=== PATIENT | male | born 1980 | race Caucasian/White ===

== ENCOUNTER 2017-09-30 07:28 | Inpatient (IN) | payer MEDICAID ==
[2017-09-30] MEDS: SOD CHLORIDE 0.9% 1,000 ML IV ×4 (08:06→22:35)
[2017-09-30] MEDS: ONDANSETRON 4 MG INJ IV (08:06)
[2017-09-30] MEDS: morphine 4 MG/ML VIAL IV (08:06)
[2017-09-30 08:09] LABS: ADD UMIC NO; UR ASCORBIC ACID NEGATIVE (NEGATIVE); UR BILIRUBIN (Dip) NEGATIVE (NEGATIVE); UR BLOOD (Dip) NEGATIVE (NEGATIVE); UR CLARITY CLEAR (CLEAR); UR COLOR YELLOW (YELLOW); UR GLUCOSE (Dip) NEGATIVE (NEGATIVE); UR KETONES (Dip) NEGATIVE (NEGATIVE); UR LEUKOCYTE ESTERASE (Dip) NEGATIVE Leu/ul (NEGATIVE); UR NITRITE (Dip) NEGATIVE (NEGATIVE); UR SPECIFIC GRAVITY (Dip) 1.014 (1.003-1.030); UR TOTAL PROTEIN (Dip) NEGATIVE (NEGATIVE); UR UROBILINOGEN (Dip) NEGATIVE (NEGATIVE)
[2017-09-30 08:13] LABS: ADD MAN DIFF? NO
[2017-09-30 08:14] LABS: WHITE BLOOD COUNT 14.6 10^3/ul (4.8-10.8)
[2017-09-30 08:14] LABS: BASOPHIL # 0.1 10^3/ul (0.0-0.1); BASOPHILS % 0.4 % (0.0-2.0); EOSINOPHILS # 0.2 10^3/ul (0.0-0.5); EOSINOPHILS % 1.2 % (0.0-7.0); HEMATOCRIT 47.4 % (42.0-52.0); HEMOGLOBIN 16.5 g/dl (14.0-18.0); LYMPHOCYTES # 1.7 10^3/ul (0.8-2.9); LYMPHOCYTES % 11.7 % (15.0-51.0); MEAN CORPUSCULAR HEMOGLOBIN 29.8 pg (29.0-33.0); MEAN CORPUSCULAR HGB CONC 34.8 g/dl (32.0-37.0); MEAN CORPUSCULAR VOLUME 85.7 fl (82.0-101.0); MEAN PLATELET VOLUME 10.5 fl (7.4-10.4); MONOCYTE # 0.8 10^3/ul (0.3-0.9); MONOCYTES % 5.3 % (0.0-11.0); NEUTROPHIL # 11.8 10^3/ul (1.6-7.5); PLATELET COUNT 283 10^3/UL (140-415); RED BLOOD COUNT 5.53 10^6/ul (4.70-6.10); RED CELL DISTRIBUTION WIDTH 12.4 % (11.5-14.5)
[2017-09-30 08:41] LABS: ALANINE AMINOTRANSFERASE 50 IU/L (13-69); ALBUMIN 4.5 g/dl (3.3-4.9); ALKALINE PHOSPHATASE 87 IU/L (42-121); ANION GAP 14 (8-16); ASPARTATE AMINO TRANSFERASE 38 IU/L (15-46); BILIRUBIN,INDIRECT 0.4 mg/dl (0-1.1); BILIRUBIN,TOTAL 0.4 mg/dl (0.2-1.3); BLOOD UREA NITROGEN 11 mg/dl (7-20); CALCIUM 9.5 mg/dl (8.4-10.2); CARBON DIOXIDE 26 mmol/L (21-31); CHLORIDE 103 mmol/L (97-110); CREATININE 0.78 mg/dl (0.61-1.24); GLUCOSE 100 mg/dl (70-220); LIPASE 43 U/L (23-300); POTASSIUM 4.2 mmol/L (3.5-5.1); SODIUM 139 mmol/L (135-144); TOTAL PROTEIN 7.7 g/dl (6.1-8.1)
[2017-09-30] MEDS: PIPER-TAZO 3.375 GM IV (PMX) 100 ML IVPB ×3 (09:58→18:00)
[2017-09-30] MEDS: HYDROmorphONE 1 MG/ML SYG IV (10:13)
[2017-09-30] MEDS ORDERED: ONDANSETRON 4 MG INJ IV ×2 (12:00→18:30)
[2017-09-30] MEDS ORDERED: NACL 0.9% 3 ML SYG IV (12:00)
[2017-09-30] MEDS ORDERED: morphine 2 MG INJ IV (12:00)
[2017-09-30] MEDS ORDERED: FENTAnyl 50 MCG/ML VIAL IV ×3 (18:30)
[2017-09-30] MEDS ORDERED: HYDROmorphONE 1 MG/5 ML IV SYRINGE IV ×2 (18:30)
[2017-09-30] MEDS ORDERED: ALBUTEROL 0.083% (NEB) 2.5 MG/3 ML AMP HHN (18:30)
[2017-09-30] MEDS ORDERED: LABETALOL HCL 20MG INJ IV (18:30)
[2017-09-30] MEDS ORDERED: MIDAZOLAM 1 MG/ML 2 ML INJ IV (18:30)
[2017-09-30] MEDS ORDERED: TRIMETHOBENZAMIDE 100 MG/ML VIAL IM (18:30)
[2017-09-30] MEDS ORDERED: EPHEDrine SULFATE 50 MG/5 ML SYG IV (18:30)
[2017-09-30] MEDS ORDERED: hydrALAzine 20 MG INJ IV (18:30)
[2017-09-30] MEDS ORDERED: MEPERIDINE 25 MG INJ IV (18:30)
[2017-09-30] MEDS ORDERED: IPRATROPIUM (NEB) 0.5 MG/2.5 ML AMP HHN (18:30)
[2017-09-30] MEDS ORDERED: DIPHENHYDRAMINE 50 MG INJ IV (18:30)
[2017-09-30] MEDS ORDERED: OXYCODONE/ACETAMINOPHEN (5/325) TAB PO ×2 (18:30)
[2017-09-30] MEDS ORDERED: PROPOFOL 20 ML (19:34)
[2017-09-30] MEDS ORDERED: NEOSTIGMINE 3 MG/3 ML SYRINGE (19:34)
[2017-09-30] MEDS ORDERED: FENTAnyl 50 MCG/ML VIAL (19:34)
[2017-09-30] MEDS ORDERED: CEFAZOLIN 1 GM INJ (19:34)
[2017-09-30] MEDS ORDERED: GLYCOPYRROLATE 0.4 MG INJ (19:34)
[2017-09-30] MEDS ORDERED: MIDAZOLAM 1 MG/ML 2 ML INJ (19:34)
[2017-09-30] MEDS ORDERED: ROCURONIUM 50 MG INJ (19:34)
[2017-09-30] MEDS ORDERED: ONDANSETRON 4 MG INJ (19:34)
[2017-09-30] MEDS ORDERED: DEXAMETHASONE 4 MG/ML 1 ML INJ (19:34)
[2017-09-30] MEDS: LIDOCAINE 1% (MPF) 30 ML INJ (20:13)
[2017-09-30] MEDS: BUPIVACAINE 0.25%/EPI (SDV) 30 ML INJ (20:13)
[2017-09-30] MEDS ORDERED: SUGAMMADEX SODIUM 200 MG/2 ML VIAL IV (20:24)
[2017-09-30] MEDS ORDERED: HYDROCODONE/APAP (5/325) TAB PO (21:00)
[2017-09-30] MEDS: HYDROmorphONE 1 MG/5 ML IV SYRINGE IV (21:26)
[2017-09-30] MEDS: FAMOTIDINE 20 MG TAB PO (22:35)
[2017-10-01] MEDS: PIPER-TAZO 3.375 GM IV (PMX) 100 ML IVPB ×3 (00:28→12:14)
[2017-10-01] MEDS: SOD CHLORIDE 0.9% 1,000 ML IV ×2 (03:39→11:39)
[2017-10-01 05:41] LABS: ADD MAN DIFF? NO
[2017-10-01 05:49] LABS: BASOPHILS % 0.1 % (0.0-2.0); HEMATOCRIT 44.7 % (42.0-52.0); HEMOGLOBIN 15.9 g/dl (14.0-18.0); LYMPHOCYTES # 0.7 10^3/ul (0.8-2.9); LYMPHOCYTES % 7.2 % (15.0-51.0); MEAN CORPUSCULAR HEMOGLOBIN 30.3 pg (29.0-33.0); MEAN CORPUSCULAR HGB CONC 35.6 g/dl (32.0-37.0); MEAN CORPUSCULAR VOLUME 85.1 fl (82.0-101.0); MEAN PLATELET VOLUME 10.2 fl (7.4-10.4); MONOCYTE # 0.3 10^3/ul (0.3-0.9); MONOCYTES % 3.2 % (0.0-11.0); NEUTROPHIL # 8.7 10^3/ul (1.6-7.5); NEUTROPHILS % 89.1 % (39.0-77.0); PLATELET COUNT 260 10^3/UL (140-415); RED BLOOD COUNT 5.25 10^6/ul (4.70-6.10); RED CELL DISTRIBUTION WIDTH 12.6 % (11.5-14.5)
[2017-10-01 05:49] LABS: WHITE BLOOD COUNT 9.7 10^3/ul (4.8-10.8)
[2017-10-01] MEDS: ACETAMINOPHEN 325 MG TAB PO (06:01)
[2017-10-01 06:14] LABS: ALANINE AMINOTRANSFERASE 43 IU/L (13-69); ALBUMIN/GLOBULIN RATIO 1.25; ALKALINE PHOSPHATASE 72 IU/L (42-121); ANION GAP 13 (8-16); ASPARTATE AMINO TRANSFERASE 28 IU/L (15-46); BLOOD UREA NITROGEN 8 mg/dl (7-20); CALCIUM 9.2 mg/dl (8.4-10.2); CARBON DIOXIDE 26 mmol/L (21-31); CHLORIDE 105 mmol/L (97-110); CHOL/HDL RATIO 4.7 RATIO; CHOLESTEROL 277 mg/dl (100-200); CREATININE 0.78 mg/dl (0.61-1.24); GLUCOSE 135 mg/dl (70-220); HDL CHOLESTEROL 58 mg/dl (28-63); LDL CHOLESTEROL,CALCULATED 196 mg/dl; MAGNESIUM 1.9 mg/dl (1.7-2.5); PHOSPHORUS 4.8 mg/dl (2.5-4.9); POTASSIUM 4.2 mmol/L (3.5-5.1); SODIUM 140 mmol/L (135-144); TOTAL PROTEIN 7.2 g/dl (6.1-8.1); TRIGLYCERIDES 114 mg/dl (0-149)
[2017-10-01 06:38] LABS: THYROID STIMULATING HORMONE 0.279 MIU/L (0.465-4.680)
[2017-10-01 07:53] LABS: HEMOGLOBIN A1C 5.5 % (0-5.9)
[2017-10-01] MEDS: FAMOTIDINE 20 MG TAB PO (07:57)
== END 2017-10-01 16:30 | disposition home or self-care (01) | DRG 343 ==
LOC: FTE 07:28 → MS2 10:43
PROC: 0DTJ4ZZ Resection of Appendix, Percutaneous Endoscopic Approach (ICD-10-PCS; principal; 2017-09-30 19:30)
DX: K35.80 Unspecified acute appendicitis (principal); D72.829 Elevated white blood cell count, unspecified; R16.0 Hepatomegaly, not elsewhere classified
CPT/HCPCS: 74176; 80053; 80061; 81003; 83036; 83690; 83735; 84100; 84443; 85025; 88304

== ENCOUNTER 2018-11-14 09:44 | Emergency (ER) | payer MEDICAID ==
[2018-11-14] MEDS: SOD CHLORIDE 0.9% 1,000 ML IV (10:55)
[2018-11-14] MEDS: METOCLOPRAMIDE 10 MG INJ IV (10:55)
[2018-11-14] MEDS: KETOROLAC 30 MG INJ IM (10:58)
[2018-11-14 11:03] LABS: ADD MAN DIFF? NO
[2018-11-14 11:04] LABS: BASOPHILS % 0.5 % (0.0-2.0); EOSINOPHILS # 0.3 10^3/ul (0.0-0.5); EOSINOPHILS % 4.3 % (0.0-7.0); HEMATOCRIT 47.1 % (42.0-52.0); HEMOGLOBIN 16.1 g/dl (14.0-18.0); LYMPHOCYTES # 1.4 10^3/ul (0.8-2.9); LYMPHOCYTES % 17.9 % (15.0-51.0); MEAN CORPUSCULAR HEMOGLOBIN 29.9 pg (29.0-33.0); MEAN CORPUSCULAR HGB CONC 34.2 g/dl (32.0-37.0); MEAN CORPUSCULAR VOLUME 87.4 fl (82.0-101.0); MEAN PLATELET VOLUME 10.5 fl (7.4-10.4); MONOCYTE # 0.5 10^3/ul (0.3-0.9); MONOCYTES % 6.3 % (0.0-11.0); NEUTROPHIL # 5.4 10^3/ul (1.6-7.5); NEUTROPHILS % 70.9 % (39.0-77.0); PLATELET COUNT 278 10^3/UL (140-415); RED BLOOD COUNT 5.39 10^6/ul (4.70-6.10); RED CELL DISTRIBUTION WIDTH 13.1 % (11.5-14.5)
[2018-11-14 11:04] LABS: WHITE BLOOD COUNT 7.6 10^3/ul (4.8-10.8)
[2018-11-14 11:31] LABS: ANION GAP 7 (5-13); BLOOD UREA NITROGEN 11 mg/dl (7-20); CALCIUM 9.5 mg/dl (8.4-10.2); CARBON DIOXIDE 28 mmol/L (21-31); CHLORIDE 106 mmol/L (97-110); CREATININE 0.83 mg/dl (0.61-1.24); Estimated GFR > 60 mL/min (>60); GLUCOSE 110 mg/dl (70-220); POTASSIUM 4.4 mmol/L (3.5-5.1); SODIUM 141 mmol/L (135-144)
== END 2018-11-14 11:47 | disposition home or self-care (01) ==
LOC: FTE 09:44
DX: R11.2 Nausea with vomiting, unspecified (principal); R42 Dizziness and giddiness; R51 Headache
CPT/HCPCS: 36415; 80048; 82962; 85025; 93005; 96361; 96372; 96374; 99284-25